=== PATIENT | female | born 1980 | race Caucasian/White ===

== ENCOUNTER 2017-07-17 20:50 | Emergency (ER) | payer OTHER ==
[~2017-07-17] VITALS: Ht 162.6 cm; Wt 81.6 kg
[~2017-07-17 20:50] MED LIST: ALLEGRA PO; AMITRYPTYLINE PO; EFFEXOR XR PO; FLAGYL PO; IMITREX PO; KLONOPIN PO; LEXAPRO PO; PREVACID PO; PREVPAC PA1 COMB.PKG PO
[2017-07-17] MEDS ORDERED: LEXAPRO20 MG PO (21:04)
[2017-07-17] MEDS ORDERED: ALPRAZOLAM PO (21:04)
== END 2017-07-17 22:19 | disposition home or self-care (01) ==
LOC: SED 20:50
DX: S61.012A Laceration without foreign body of left thumb without damage to nail, initial encounter (principal); Z23 Encounter for immunization; W45.8XXA Other foreign body or object entering through skin, initial encounter; Y92.009 Unspecified place in unspecified non-institutional (private) residence as the place of occurrence of the external cause
CPT/HCPCS: 12001; 90471; 90715; 99283